=== PATIENT | female | born 1980 | race Caucasian/White ===

== ENCOUNTER 2018-03-31 17:10 | Inpatient (IN) ==
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
[2018-03-31 19:14] LABS: Baso % (Auto) 0.1 % (0.0-2.0); Eos % (Auto) 0.2 % (0.0-4.0); Hematocrit 38.8 % (35.0-46.0); Hemoglobin 13.7 gm/dL (11.6-15.3); Lymph % (Auto) 14.9 % (9.0-44.0); Mean Corpuscular HGB Conc 35.3 % (32.0-36.0); Mean Corpuscular Hemoglobin 33.5 pg (27.0-34.0); Mean Corpuscular Volume 94.9 fL (80.0-100.0); Mean Platelet Volume 7.6 fL (7.0-11.0); Mono % (Auto) 7.8 % (0.0-8.0); Neut # (Auto) 10.2 th/mm3 (1.8-7.7); Platelet Count 306 th/mm3 (150-450); Red Blood Count 4.09 mil/mm3 (4.00-5.30); Red Cell Distribution Width 13.2 % (11.6-17.2); White Blood Count 13.2 th/mm3 (4.0-11.0)
[2018-03-31 19:15] LABS: Amphetamine Screen,Urine Neg (Neg); Barbiturate Screen,Urine Neg (Neg); Cannabinoid Screen,Urine Neg (Neg); Cocaine Screen,Urine Neg (Neg)
[2018-03-31 19:19] LABS: Bacteria,Urine Rare /hpf; Bilirubin,Urine Negative (Negative); Clarity,Urine Clear (Clear); Color,Urine Colorless (Yellw/Straw); Glucose,Urine (UA) Negative (Negative); Leukocyte Esterase,Urine Negative (Negative); Nitrite,Urine Negative (Negative); Specific Gravity,Urine 1.001 (1.002-1.035)
[2018-03-31 19:25] LABS: Albumin 4.7 g/dL (3.4-5.0); Anion Gap 11 meq/L (5-15); Aspartate Aminotransferase 19 U/L (15-37); Blood Urea Nitrogen 7 mg/dL (7-18); Calcium 8.8 mg/dL (8.5-10.1); Carbon Dioxide 22.2 meq/L (21.0-32.0); Chloride 92 meq/L (98-107); Glomerular Filtration Rate Greater Than 89 mL/min (>89); Glucose,Random 112 mg/dL (74-106); Sodium 125 meq/L (136-145)
[2018-03-31 19:26] LABS: Alanine Aminotransferase 28 U/L (10-53)
[2018-03-31 19:27] LABS: Opiate Screen,Urine Neg (Neg)
[2018-03-31 19:36] LABS: Alkaline Phosphatase 71 U/L (45-117); Total Protein 7.6 g/dL (6.4-8.2)
[2018-03-31] MEDS ORDERED: Potassium Chloride 25 MEQ Effervescent Tablet PO ONE (20:15)
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
[2018-04-01] MEDS ORDERED: Aluminum/Magnesium/Simethacone Susp 30 ML UDC PO PRN (18:06)
[2018-04-01] MEDS: Senna/Docusate Sodium 8.6/50 MG Tablet PO SCH (21:40)
[2018-04-01] MEDS: Ibuprofen 600 MG Tablet PO SCH (21:40)
[2018-04-02] MEDS: Ibuprofen 600 MG Tablet PO SCH ×3 (06:26→21:26)
[2018-04-02] MEDS: Senna/Docusate Sodium 8.6/50 MG Tablet PO SCH ×2 (08:06→21:26)
[2018-04-02 10:15] LABS: Anion Gap 8 meq/L (5-15); Blood Urea Nitrogen 6 mg/dL (7-18); Calcium 8.8 mg/dL (8.5-10.1); Carbon Dioxide 27.4 meq/L (21.0-32.0); Chloride 102 meq/L (98-107); Chol/HDL Ratio 2.09 Ratio; Cholesterol 130 mg/dL (120-200); Glomerular Filtration Rate Greater Than 89 mL/min (>89); Glucose,Random 102 mg/dL (74-106); HDL Cholesterol 62.2 mg/dL (40.0-60.0); LDL Cholesterol,Calculated 60 mg/dL (0-99); Potassium 3.8 meq/L (3.5-5.1); Sodium 137 meq/L (136-145); Triglycerides 40 mg/dL (42-150)
[2018-04-02] MEDS ORDERED: Aluminum/Magnesium/Simethacone Susp 30 ML UDC PO PRN (12:15)
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
[2018-04-02 18:05] LABS: Hemoglobin A1c 4.8 % (4.3-6.0)
[2018-04-03] MEDS: Ibuprofen 600 MG Tablet PO SCH ×3 (08:44→21:05)
[2018-04-03] MEDS: Senna/Docusate Sodium 8.6/50 MG Tablet PO SCH ×2 (08:44→21:07)
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
[2018-04-04] MEDS: Ibuprofen 600 MG Tablet PO SCH ×3 (06:38→21:20)
[2018-04-04] MEDS ORDERED: QUEtiapine 100 MG Tablet PO SCH (09:48)
--- NOTE | 2018-04-04 09:51 | P.PNPSY ---
Subjective Remarks: Patient seen and torres with nurse Susana, chart reviewed, patient compliant medication. Patient continues markedly distracted and disorganized. Did not remember the statements she made to me 2 days ago about her delivering a baby that she identified as many. There is still thought blocking noted that she still responding to internal stimuli. We will increase Seroquel 250 mg twice daily Review of Systems All other systems reviewed negative except as stated in HPI Mental Status Examination Appearance: Disheveled (Somewhat improved) Consciousness: Alert Orientation: Person, Place (At least) Motor Activity: Normal gait Speech: Hesitant (Improving), Slow (Improved) Language: Adequate Fund of Knowledge: Adequate Attention and Concentration: Inadequate Memory: Unremarkable (Psychosis interferes) Mood: Anxious Affect: Irritable (Slightly), Blunt Thought Process & Associations: Tangential Thought Content: Bizarre thinking, Hallucinations Hallucination Type: Auditory (Appears internally stimulated) Delusion Type: Bizarre Suicidal Ideation: No Suicidal Plan: No Suicidal Intention: No Homicidal Ideation: No Homicidal Plan: No Homicidal Intention: No Insight: Poor Judgment: Poor Assessment and Plan - Assessment (1) Schizophrenia Code(s): F20.9 - Schizophrenia, unspecified Status: Acute - Plan Plan: Patient continues psychotic and delusional with auditory hallucinations. She medication adjustment above Justification for Continued Inpatient Stay: At this time patient would decompensate a place to a lower level of care Discharge Planning: To be determined Request Healthcare Surrogate/Guardian Advocate?: Yes (1) Schizophrenia Qualifiers: Schizophrenia type: paranoid schizophrenia Qualified Code(s): F20.0 - Paranoid schizophrenia
[2018-04-04] MEDS: Senna/Docusate Sodium 8.6/50 MG Tablet PO SCH ×2 (10:46→21:20)
[2018-04-04] MEDS: QUEtiapine 100 MG Tablet PO SCH ×2 (11:05→21:20)
[2018-04-05] MEDS: Ibuprofen 600 MG Tablet PO SCH ×3 (05:52→21:19)
[2018-04-05] MEDS: QUEtiapine 100 MG Tablet PO SCH ×2 (11:03→21:19)
[2018-04-05] MEDS: Senna/Docusate Sodium 8.6/50 MG Tablet PO SCH ×2 (11:03→21:18)
--- NOTE | 2018-04-05 15:22 | P.PNPSY ---
Subjective Remarks: Patient was seen and case discussed with nursing. Patient is disorganized with poor insight into her admission. She is vague and minimally engaged during the interview. She is compliant with her medications denies any auditory or visual hallucinations. Likely responding to internal stimuli Mental Status Examination Appearance: Disheveled (Somewhat improved) Consciousness: Alert Orientation: Person, Place (At least) Motor Activity: Normal gait Speech: Hesitant (Improving), Slow (Improved) Language: Adequate Fund of Knowledge: Adequate Attention and Concentration: Inadequate Memory: Unremarkable (Psychosis interferes) Mood: Anxious Affect: Irritable (Slightly), Blunt Thought Process & Associations: Tangential Thought Content: Bizarre thinking, Hallucinations Hallucination Type: Auditory (Appears internally stimulated) Delusion Type: Bizarre Suicidal Ideation: No Suicidal Plan: No Suicidal Intention: No Homicidal Ideation: No Homicidal Plan: No Homicidal Intention: No Insight: Poor Judgment: Poor Assessment and Plan - Assessment (1) Schizophrenia Code(s): F20.9 - Schizophrenia, unspecified Status: Acute - Plan Plan: Continue current treatment plan Justification for Continued Inpatient Stay: Patient would decompensate in a less restrictive setting Request Healthcare Surrogate/Guardian Advocate?: Yes (1) Schizophrenia Qualifiers: Schizophrenia type: paranoid schizophrenia Qualified Code(s): F20.0 - Paranoid schizophrenia
[2018-04-06] MEDS: Ibuprofen 600 MG Tablet PO SCH ×3 (05:49→22:00)
[2018-04-06] MEDS: QUEtiapine 100 MG Tablet PO SCH ×2 (08:31→20:22)
[2018-04-06] MEDS: Senna/Docusate Sodium 8.6/50 MG Tablet PO SCH ×2 (08:33→20:22)
--- NOTE | 2018-04-06 12:37 | P.PNPSY ---
Subjective Remarks: Patient was seen and case discussed with nursing. Patient is disheveled with toothpaste all over her face. She says she is putting it on her pimples. She is internally stimulated and continues with somatic delusions. Thought processes disorganized. Per nursing she has been intrusive with other patients taking their food. However, she denies auditory or visual hallucinations Mental Status Examination Appearance: Disheveled (Somewhat improved) Consciousness: Alert Orientation: Person, Place (At least) Motor Activity: Normal gait Speech: Hesitant (Improving), Slow (Improved) Language: Adequate Fund of Knowledge: Adequate Attention and Concentration: Inadequate Memory: Unremarkable (Psychosis interferes) Mood: Anxious Affect: Irritable (Slightly), Blunt Thought Process & Associations: Circumstantial Thought Content: Bizarre thinking, Hallucinations Hallucination Type: Auditory (Appears internally stimulated) Delusion Type: Bizarre Suicidal Ideation: No Suicidal Plan: No Suicidal Intention: No Homicidal Ideation: No Homicidal Plan: No Homicidal Intention: No Insight: Poor Judgment: Poor Assessment and Plan - Assessment (1) Schizophrenia Code(s): F20.9 - Schizophrenia, unspecified Status: Acute - Plan Plan: Continue current treatment plan Justification for Continued Inpatient Stay: Patient would decompensate in a less restrictive setting Request Healthcare Surrogate/Guardian Advocate?: Yes (1) Schizophrenia Qualifiers: Schizophrenia type: paranoid schizophrenia Qualified Code(s): F20.0 - Paranoid schizophrenia
[2018-04-07] MEDS: Ibuprofen 600 MG Tablet PO SCH ×3 (06:37→21:59)
[2018-04-07] MEDS: QUEtiapine 100 MG Tablet PO SCH ×2 (08:40→21:58)
[2018-04-07] MEDS: Senna/Docusate Sodium 8.6/50 MG Tablet PO SCH ×2 (08:41→21:59)
--- NOTE | 2018-04-07 14:24 | P.PNPSY ---
Subjective Remarks: Patient seen in day room with nurse Mitra. Patient continues disorganized scattered thought blocking. She is vague about any continued auditory hallucinations. It appears last night patient's his toothpaste and they have that all over her face and forehead she said it was to take care of "zits" she is compliant with her medication and of the counselor called patient's family to discuss possible placement issues Review of Systems All other systems reviewed negative except as stated in HPI Mental Status Examination Appearance: Disheveled (Somewhat improved) Consciousness: Alert Orientation: Person, Place (At least) Motor Activity: Normal gait Speech: Hesitant (Improving), Slow (Improved) Language: Adequate Fund of Knowledge: Adequate Attention and Concentration: Inadequate Memory: Unremarkable (Psychosis interferes) Mood: Anxious Affect: Irritable (Slightly), Blunt Thought Process & Associations: Circumstantial Thought Content: Bizarre thinking, Hallucinations Hallucination Type: Auditory (Appears internally stimulated) Delusion Type: Bizarre Suicidal Ideation: No Suicidal Plan: No Suicidal Intention: No Homicidal Ideation: No Homicidal Plan: No Homicidal Intention: No Insight: Poor Judgment: Poor Assessment and Plan - Assessment (1) Schizophrenia Code(s): F20.9 - Schizophrenia, unspecified Status: Acute - Plan Plan: Patient remains quite psychotic delusional and bizarre. We will attempt to reach patient's family to discuss further treatment discharge planning Justification for Continued Inpatient Stay: At this time patient would decompensate a place to a lower level of care Discharge Planning: To be determined possibly back home Request Healthcare Surrogate/Guardian Advocate?: Yes (1) Schizophrenia Qualifiers: Schizophrenia type: paranoid schizophrenia Qualified Code(s): F20.0 - Paranoid schizophrenia
[2018-04-08] MEDS: Ibuprofen 600 MG Tablet PO SCH ×2 (06:21→13:51)
[2018-04-08] MEDS: QUEtiapine 100 MG Tablet PO SCH (08:55)
[2018-04-08] MEDS: Senna/Docusate Sodium 8.6/50 MG Tablet PO SCH (08:56)
--- NOTE | 2018-04-08 14:15 | P.PNPSY ---
Subjective Remarks: Patient seen in her room with RN, chart reviewed, patient complaint medications she continues to show no insight into her disease, she denies any need for medication. She does not want to take medication. She does not think she has a mental illness. She just wants to be left alone. We will offer in [place] 3 mg orally and anticipation of possibly offering her in Parish sustain a long-acting Review of Systems All other systems reviewed negative except as stated in HPI Mental Status Examination Appearance: Disheveled (Somewhat improved) Consciousness: Alert Orientation: Person, Place (At least) Motor Activity: Normal gait Speech: Hesitant (Improving), Slow (Improved) Language: Adequate Fund of Knowledge: Adequate Attention and Concentration: Inadequate Memory: Unremarkable (Psychosis interferes) Mood: Anxious Affect: Irritable (Slightly), Blunt Thought Process & Associations: Circumstantial Thought Content: Bizarre thinking, Hallucinations Hallucination Type: Auditory (Appears internally stimulated) Delusion Type: Bizarre Suicidal Ideation: No Suicidal Plan: No Suicidal Intention: No Homicidal Ideation: No Homicidal Plan: No Homicidal Intention: No Insight: Poor Judgment: Poor Assessment and Plan - Assessment (1) Schizophrenia Code(s): F20.9 - Schizophrenia, unspecified Status: Acute - Plan Plan: Patient remains psychotic delusional with no insight into her disease and need for medication. She medication adjustment above offering in [place] orally in anticipation of possibly giving her the in Parish sustain a Justification for Continued Inpatient Stay: At this time patient would decompensate a place to a lower level of care Discharge Planning: To be determined Request Healthcare Surrogate/Guardian Advocate?: Yes (1) Schizophrenia Qualifiers: Schizophrenia type: paranoid schizophrenia Qualified Code(s): F20.0 - Paranoid schizophrenia
[2018-04-09] MEDS: Ibuprofen 600 MG Tablet PO SCH ×3 (01:09→23:44)
[2018-04-09] MEDS: Senna/Docusate Sodium 8.6/50 MG Tablet PO SCH ×3 (01:10→20:05)
[2018-04-09] MEDS: QUEtiapine 100 MG Tablet PO SCH ×3 (01:10→20:03)
--- NOTE | 2018-04-09 10:13 | P.PNPSY ---
Subjective Remarks: Patient seen and unit 2700 today. Patient seen with nurse. Chart reviewed. After the progress note dictated yesterday patient became quite out of control screaming and yelling being aggressive throwing herself on the ground she need an DTO of Zyprexa and Ativan. Patient was then transferred 2700 unit she slept fairly well through the night. Today patient seen on 2700 unit with nurse she continues to pace the halls saying she is not L she does not need medicine. All she needs to do is to go home with her father. I did attempt to offer patient in [place] orally yesterday she refused. Patient scheduled for Dials tomorrow. It is hoped her father will be there so he may become guardian advocate. May need to initiate more aggressive treatment with both rapid acting and the long-acting injectable Review of Systems All other systems reviewed negative except as stated in HPI Mental Status Examination Appearance: Disheveled (Somewhat improved) Consciousness: Alert Orientation: Person, Place (At least) Motor Activity: Normal gait Speech: Pressured, Hesitant (Improving), Slow (Improved), Other (Quite loud and disorganized) Language: Adequate Fund of Knowledge: Adequate Attention and Concentration: Inadequate Memory: Unremarkable (Psychosis interferes) Mood: Angry, Anxious, Irritable Affect: Other (Decreased range and intensity) Thought Process & Associations: Circumstantial, Disorganized Thought Content: Bizarre thinking, Hallucinations Hallucination Type: Auditory (Appears internally stimulated) Delusion Type: Bizarre Suicidal Ideation: No Suicidal Plan: No Suicidal Intention: No Homicidal Ideation: No Homicidal Plan: No Homicidal Intention: No Insight: Poor Judgment: Poor Assessment and Plan - Assessment (1) Schizophrenia Code(s): F20.9 - Schizophrenia, unspecified Status: Acute - Plan Plan: Patient remains quite psychotic and delusional with no insight. Patient scheduled for Dials tomorrow Justification for Continued Inpatient Stay: At this time patient would decompensate a place to the lower level of care Discharge Planning: To be determined Request Healthcare Surrogate/Guardian Advocate?: Yes (1) Schizophrenia Qualifiers: Schizophrenia type: paranoid schizophrenia Qualified Code(s): F20.0 - Paranoid schizophrenia
[2018-04-10] MEDS: Senna/Docusate Sodium 8.6/50 MG Tablet PO SCH ×2 (08:04→20:38)
[2018-04-10] MEDS: QUEtiapine 100 MG Tablet PO SCH ×3 (08:05→21:42)
--- NOTE | 2018-04-10 12:38 | P.PNPSY ---
Subjective Remarks: Patient seen in [address] was retained by Raymond Howell. Patient remained markedly disorganized confused demanding showing no insight into her disease. Only wishes to be discharged so she can go outside and smoke. Patient compliant medication Review of Systems All other systems reviewed negative except as stated in HPI Mental Status Examination Appearance: Disheveled (Somewhat improved) Consciousness: Alert Orientation: Person, Place (At least) Motor Activity: Normal gait Speech: Pressured, Hesitant (Improving), Slow (Improved), Other (Quite loud and disorganized) Language: Adequate Fund of Knowledge: Adequate Attention and Concentration: Inadequate Memory: Unremarkable (Psychosis interferes) Mood: Angry, Anxious, Irritable Affect: Other (Decreased range and intensity) Thought Process & Associations: Circumstantial, Disorganized Thought Content: Bizarre thinking, Hallucinations Hallucination Type: Auditory (Appears internally stimulated) Delusion Type: Bizarre Suicidal Ideation: No Suicidal Plan: No Suicidal Intention: No Homicidal Ideation: No Homicidal Plan: No Homicidal Intention: No Insight: Poor Judgment: Poor Assessment and Plan - Assessment (1) Schizophrenia Code(s): F20.9 - Schizophrenia, unspecified Status: Acute - Plan Plan: At this time patient remained psychotic delusional and labile. Compliant medication. He has been retained Justification for Continued Inpatient Stay: At this point patient would decompensate a place a lower level of care Discharge Planning: To be determined Request Healthcare Surrogate/Guardian Advocate?: Yes (1) Schizophrenia Qualifiers: Schizophrenia type: paranoid schizophrenia Qualified Code(s): F20.0 - Paranoid schizophrenia
[2018-04-10] MEDS: Ibuprofen 600 MG Tablet PO SCH (16:46)
[2018-04-11] MEDS: Ibuprofen 600 MG Tablet PO SCH ×5 (06:38→22:03)
[2018-04-11] MEDS: QUEtiapine 100 MG Tablet PO SCH ×2 (09:20→22:02)
--- NOTE | 2018-04-11 09:48 | P.PNPSY ---
Subjective Remarks: Patient seen and torres with floor staff, chart reviewed, patient trying to improve compliance medication. Her patient remains markedly disorganized paranoid confused and scattered irritable and vigilant We decided the oral INVEGA if she tolerates that over the weekend consider invega sustained on Saturday or Saturday Review of Systems All other systems reviewed negative except as stated in HPI Mental Status Examination Appearance: Disheveled (Somewhat improved) Consciousness: Alert Orientation: Person, Place (At least) Motor Activity: Normal gait Speech: Pressured, Hesitant (Improving), Slow (Improved) Language: Adequate Fund of Knowledge: Adequate Attention and Concentration: Inadequate Memory: Unremarkable (Psychosis interferes) Mood: Angry, Anxious, Irritable Affect: Other (Decreased range and intensity) Thought Process & Associations: Circumstantial, Disorganized Thought Content: Bizarre thinking, Hallucinations Hallucination Type: Auditory (Appears internally stimulated) Delusion Type: Bizarre Suicidal Ideation: No Suicidal Plan: No Suicidal Intention: No Homicidal Ideation: No Homicidal Plan: No Homicidal Intention: No Insight: Poor Judgment: Poor Assessment and Plan - Assessment (1) Schizophrenia Code(s): F20.9 - Schizophrenia, unspecified Status: Acute - Plan Plan: Patient remained psychotic delusional somewhat intrusive though overall compliant medication Justification for Continued Inpatient Stay: At this time patient would decompensate a place to a lower level of care Discharge Planning: To be determined Request Healthcare Surrogate/Guardian Advocate?: Yes (1) Schizophrenia Qualifiers: Schizophrenia type: paranoid schizophrenia Qualified Code(s): F20.0 - Paranoid schizophrenia
[2018-04-11] MEDS: Senna/Docusate Sodium 8.6/50 MG Tablet PO SCH ×2 (16:27→22:02)
[2018-04-12] MEDS: Ibuprofen 600 MG Tablet PO SCH ×3 (06:19→21:15)
[2018-04-12] MEDS: QUEtiapine 100 MG Tablet PO SCH ×2 (08:53→21:15)
[2018-04-12] MEDS: Senna/Docusate Sodium 8.6/50 MG Tablet PO SCH ×2 (08:58→21:15)
--- NOTE | 2018-04-12 17:07 | P.PNPSY ---
Subjective Remarks: Reviewed electronic medical records and discussed case with staff. Follow-up was conducted in the exam room. Patient states that she has not been sleeping well due to being "woke up way too early". She reports that she has had a good appetite and states that this hospital has good food. She remains disorganized at times. When asked what it brought her into this facility she went off on a tangent about the "girls being crunchy" when asked to elaborate she stated the girls are "people from high school" began to ramble not making a lot of sense. She was observed in the hallway appearing to this he will be experiencing internal stimulation. She randomly yells out and paces the halls Mental Status Examination Appearance: Disheveled (Somewhat improved) Consciousness: Alert Orientation: Person, Place (At least) Motor Activity: Normal gait Speech: Pressured, Hesitant (Improving), Slow (Improved) Language: Adequate Fund of Knowledge: Adequate Attention and Concentration: Inadequate Memory: Unremarkable (Psychosis interferes) Mood: Angry, Anxious, Irritable Affect: Other (Decreased range and intensity) Thought Process & Associations: Circumstantial, Disorganized Thought Content: Bizarre thinking, Hallucinations Hallucination Type: Auditory (Appears internally stimulated) Delusion Type: Bizarre Suicidal Ideation: No Suicidal Plan: No Suicidal Intention: No Homicidal Ideation: No Homicidal Plan: No Homicidal Intention: No Insight: Poor Judgment: Poor Assessment and Plan - Assessment (1) Schizophrenia Code(s): F20.9 - Schizophrenia, unspecified Status: Acute - Plan Plan: Patient will be reevaluated Saturday by the attending psychiatrist. Continue with current treatment plan. Justification for Continued Inpatient Stay: Moving this patient to a less restrictive environment would likely result in decompensation. Request Healthcare Surrogate/Guardian Advocate?: Yes (1) Schizophrenia Qualifiers: Schizophrenia type: paranoid schizophrenia Qualified Code(s): F20.0 - Paranoid schizophrenia
[2018-04-13] MEDS: QUEtiapine 100 MG Tablet PO SCH ×2 (09:20→21:41)
[2018-04-13] MEDS: Senna/Docusate Sodium 8.6/50 MG Tablet PO SCH ×2 (09:20→21:41)
[2018-04-13] MEDS: Ibuprofen 600 MG Tablet PO SCH ×2 (09:21→21:42)
--- NOTE | 2018-04-13 17:12 | P.PNPSY ---
Subjective Remarks: Reviewed electronic medical records and discussed case with staff. Follow-up was conducted in patient's room. She found lying on the bed awake, alert, and oriented. She reports that she feels "a little better". She has been compliant with her medications. However, she maintains that she still not sleeping very well. She requests to have her medications moved to the evening as she reports that they make her quite sleepy and makes it difficult to get out of bed. She does state that her appetite has been good however. I will leave her attending to decide if he would like to increase her dose at night and decrease her morning dose. Mental Status Examination Appearance: Disheveled (Somewhat improved) Consciousness: Alert Orientation: Person, Place (At least) Motor Activity: Normal gait Speech: Pressured, Hesitant (Improving), Slow (Improved) Language: Adequate Fund of Knowledge: Adequate Attention and Concentration: Inadequate Memory: Unremarkable (Psychosis interferes) Mood: Angry, Anxious, Irritable Affect: Other (Decreased range and intensity) Thought Process & Associations: Circumstantial, Disorganized Thought Content: Bizarre thinking, Hallucinations Hallucination Type: Auditory (Appears internally stimulated) Delusion Type: Bizarre Suicidal Ideation: No Suicidal Plan: No Suicidal Intention: No Homicidal Ideation: No Homicidal Plan: No Homicidal Intention: No Insight: Poor Judgment: Poor Assessment and Plan - Assessment (1) Schizophrenia Code(s): F20.9 - Schizophrenia, unspecified Status: Acute - Plan Plan: Patient will be reevaluated tomorrow by the attending psychiatrist. Continue with current treatment plan. Patient seems to be doing much better and is hopeful for discharge tomorrow. She is requesting to have her evening dose of Seroquel increased and her morning dose decreased. I will leave it to her attending to decide whether to make that change in medication. Justification for Continued Inpatient Stay: Moving this patient to a less restrictive environment would likely result in decompensation. Request Healthcare Surrogate/Guardian Advocate?: Yes (1) Schizophrenia Qualifiers: Schizophrenia type: paranoid schizophrenia Qualified Code(s): F20.0 - Paranoid schizophrenia
[2018-04-14] MEDS: Ibuprofen 600 MG Tablet PO SCH ×3 (06:47→21:02)
[2018-04-14] MEDS: QUEtiapine 100 MG Tablet PO SCH ×2 (08:30→20:29)
[2018-04-14] MEDS: Senna/Docusate Sodium 8.6/50 MG Tablet PO SCH ×2 (08:31→20:28)
--- NOTE | 2018-04-14 16:25 | P.PNPSY ---
Subjective Remarks: Reviewed electronic medical records and discussed case with staff. Follow-up was conducted in the hallway. Patient's nurse reports that she has had some behaviors today such as: Chasing people down the torres thinking that they had her headband, focused on water to drink, and standing in the torres with disorganized speech trying to communicate to the nurse. She reviews well for me stating that she slept well and her appetite is been good. When asked about the head be an incident she tries to explain it and quickly becomes disorganized in her speech. Mental Status Examination Appearance: Disheveled (Somewhat improved) Consciousness: Alert Orientation: Person, Place (At least) Motor Activity: Normal gait Speech: Pressured, Hesitant (Improving), Slow (Improved) Language: Adequate Fund of Knowledge: Adequate Attention and Concentration: Inadequate Memory: Unremarkable (Psychosis interferes) Mood: Angry, Anxious, Irritable Affect: Other (Decreased range and intensity) Thought Process & Associations: Circumstantial, Disorganized Thought Content: Bizarre thinking, Hallucinations Hallucination Type: Auditory (Appears internally stimulated) Delusion Type: Bizarre Suicidal Ideation: No Suicidal Plan: No Suicidal Intention: No Homicidal Ideation: No Homicidal Plan: No Homicidal Intention: No Insight: Poor Judgment: Poor Assessment and Plan - Assessment (1) Schizophrenia Code(s): F20.9 - Schizophrenia, unspecified Status: Acute - Plan Plan: Patient will be reevaluated tomorrow by the attending psychiatrist. Continue with current treatment plan. Justification for Continued Inpatient Stay: Moving this patient to a less restrictive environment would likely result in decompensation. Request Healthcare Surrogate/Guardian Advocate?: Yes (1) Schizophrenia Qualifiers: Schizophrenia type: paranoid schizophrenia Qualified Code(s): F20.0 - Paranoid schizophrenia
[2018-04-15] MEDS: QUEtiapine 100 MG Tablet PO SCH (08:23)
[2018-04-15] MEDS: Senna/Docusate Sodium 8.6/50 MG Tablet PO SCH ×2 (08:24→20:37)
[2018-04-15] MEDS: Ibuprofen 600 MG Tablet PO SCH ×2 (13:03→21:04)
--- NOTE | 2018-04-15 13:40 | P.PNPSY ---
Subjective Remarks: Patient seen and torres with floor staff, chart reviewed, patient compliant medications. Continues somewhat disorganized and intrusive paranoid and irritable. At this time I feel patient is not responded as well as I would like her to the Seroquel will condense the Seroquel to 400 mg at bedtime and add in [place] orally 6 mg in the a.m. in anticipation of in [place] sustain a Review of Systems All other systems reviewed negative except as stated in HPI Mental Status Examination Appearance: Disheveled (Somewhat improved) Consciousness: Alert Orientation: Person, Place (At least) Motor Activity: Normal gait Speech: Pressured, Hesitant (Improving), Slow (Improved) Language: Adequate Fund of Knowledge: Adequate Attention and Concentration: Inadequate Memory: Unremarkable (Psychosis interferes) Mood: Angry, Anxious, Irritable Affect: Other (Decreased range and intensity) Thought Process & Associations: Circumstantial, Disorganized Thought Content: Bizarre thinking, Hallucinations Hallucination Type: Auditory (Appears internally stimulated) Delusion Type: Bizarre Suicidal Ideation: No Suicidal Plan: No Suicidal Intention: No Homicidal Ideation: No Homicidal Plan: No Homicidal Intention: No Insight: Poor Judgment: Poor Assessment and Plan - Assessment (1) Schizophrenia Code(s): F20.9 - Schizophrenia, unspecified Status: Acute - Plan Plan: Patient remained psychotic delusional and intrusive. I feel she is not responding to medication as well as I would like. Thus please see medication adjustments above Justification for Continued Inpatient Stay: At this time patient would decompensate a place to a lower level of care Discharge Planning: To be determined possible return home or to [facility] Request Healthcare Surrogate/Guardian Advocate?: Yes (1) Schizophrenia Qualifiers: Schizophrenia type: paranoid schizophrenia Qualified Code(s): F20.0 - Paranoid schizophrenia
[2018-04-16] MEDS: Senna/Docusate Sodium 8.6/50 MG Tablet PO SCH ×2 (08:15→20:18)
[2018-04-16] MEDS: Ibuprofen 600 MG Tablet PO SCH ×3 (08:15→15:21)
--- NOTE | 2018-04-16 12:49 | P.PNPSY ---
Subjective Remarks: Patient seen in her room with nurse Namrata, chart reviewed, patient compliant medication. Patient tolerated initial dose of oral and [place] without difficulty. Patient continues quite loose disorganized paranoid and at times silly. She does acknowledge continued auditory hallucinations of Gabriel and other intermittent voices. For now continue treatment at this time and concerned about the responses patient is going to the medication as a possibility that she may need long-term stabilization thus I will initiate state referral packet Review of Systems All other systems reviewed negative except as stated in HPI Mental Status Examination Appearance: Disheveled (Somewhat improved) Consciousness: Alert Orientation: Person, Place (At least) Motor Activity: Normal gait Speech: Pressured, Hesitant (Improving), Slow (Improved) Language: Adequate Fund of Knowledge: Adequate Attention and Concentration: Inadequate Memory: Unremarkable (Psychosis interferes) Mood: Angry, Anxious, Irritable Affect: Other (Decreased range and intensity) Thought Process & Associations: Circumstantial, Disorganized Thought Content: Bizarre thinking, Hallucinations Hallucination Type: Auditory (Appears internally stimulated) Delusion Type: Bizarre Suicidal Ideation: No Suicidal Plan: No Suicidal Intention: No Homicidal Ideation: No Homicidal Plan: No Homicidal Intention: No Insight: Poor Judgment: Poor Assessment and Plan - Assessment (1) Schizophrenia Code(s): F20.9 - Schizophrenia, unspecified Status: Acute - Plan Plan: Patient remained psychotic paranoid vigilant and delusional we will start state referral packet Justification for Continued Inpatient Stay: At this time patient would decompensate a place to a lower level of care Discharge Planning: To be determined we will start state referral packet Request Healthcare Surrogate/Guardian Advocate?: Yes (1) Schizophrenia Qualifiers: Schizophrenia type: paranoid schizophrenia Qualified Code(s): F20.0 - Paranoid schizophrenia
[2018-04-17] MEDS: Ibuprofen 600 MG Tablet PO SCH ×4 (00:28→22:40)
[2018-04-17] MEDS: Senna/Docusate Sodium 8.6/50 MG Tablet PO SCH ×2 (08:23→21:05)
--- NOTE | 2018-04-17 08:52 | P.PNPSY ---
Subjective Remarks: Patient seen and torres with floor staff, patient calm cooperative is somewhat intrusive with me chart reviewed, patient compliant medications. Patient making very somatic complaints and demands stating that she wants dental floss, she wants a stronger nicotine lozenge, she also states she has not had a bowel movement in 2 weeks and she needs to have her "colon cleanse". We will have staff monitor her urinary and fecal output patient has been tolerating her oral in [place] if this continues we will consider in [place] sustain up tomorrow she also acknowledges continued voices in her head. Review of Systems All other systems reviewed negative except as stated in HPI Mental Status Examination Appearance: Disheveled (Somewhat improved) Consciousness: Alert Orientation: Person, Place (At least) Motor Activity: Normal gait Speech: Pressured, Hesitant (Improving), Slow (Improved) Language: Adequate Fund of Knowledge: Adequate Attention and Concentration: Inadequate Memory: Unremarkable (Psychosis interferes) Mood: Angry, Anxious, Irritable Affect: Other (Decreased range and intensity) Thought Process & Associations: Circumstantial, Disorganized Thought Content: Bizarre thinking, Hallucinations Hallucination Type: Auditory (Appears internally stimulated) Delusion Type: Bizarre Suicidal Ideation: No Suicidal Plan: No Suicidal Intention: No Homicidal Ideation: No Homicidal Plan: No Homicidal Intention: No Insight: Poor Judgment: Poor Assessment and Plan - Assessment (1) Schizophrenia Code(s): F20.9 - Schizophrenia, unspecified Status: Acute - Plan Plan: Patient continues psychotic and somewhat delusional, low compliant medications. She is tolerating her medication we will consider addition of the and [place] sustain at tomorrow Justification for Continued Inpatient Stay: At this time patient would decompensate a place to a lower level of care Discharge Planning: [facility] hospital referral packet has been started Request Healthcare Surrogate/Guardian Advocate?: Yes (1) Schizophrenia Qualifiers: Schizophrenia type: paranoid schizophrenia Qualified Code(s): F20.0 - Paranoid schizophrenia
[2018-04-18] MEDS: Ibuprofen 600 MG Tablet PO SCH ×2 (06:49→16:51)
[2018-04-18] MEDS: Senna/Docusate Sodium 8.6/50 MG Tablet PO SCH ×2 (08:31→20:59)
--- NOTE | 2018-04-18 12:09 | P.PNPSY ---
Subjective Remarks: Patient seen and torres with nurse Namrata, chart reviewed, patient compliant medications. Patient tolerating the oral and Parish without problems. We will offer her in Parish sustain a to 34 mg IM today and q. 28 days. Patient continues quite disorganized quite tangential and circumstantial well denying voices appears to be responding to internal stimuli patient had complained of constipation. Patient was medicated she states she had a good bowel movement yesterday Review of Systems All other systems reviewed negative except as stated in HPI Mental Status Examination Appearance: Disheveled (Somewhat improved) Consciousness: Alert Orientation: Person, Place (At least) Motor Activity: Normal gait Speech: Pressured, Hesitant (Improving), Slow (Improved) Language: Adequate Fund of Knowledge: Adequate Attention and Concentration: Inadequate Memory: Unremarkable (Psychosis interferes) Mood: Angry, Anxious, Irritable Affect: Other (Decreased range and intensity) Thought Process & Associations: Circumstantial, Disorganized Thought Content: Bizarre thinking, Hallucinations Hallucination Type: Auditory (Appears internally stimulated) Delusion Type: Bizarre Suicidal Ideation: No Suicidal Plan: No Suicidal Intention: No Homicidal Ideation: No Homicidal Plan: No Homicidal Intention: No Insight: Poor Judgment: Poor Assessment and Plan - Assessment (1) Schizophrenia Code(s): F20.9 - Schizophrenia, unspecified Status: Acute - Plan Plan: Patient continues disorganized with significant formal thought disorders quite tangential and circumstantial. She medication adjustment above Justification for Continued Inpatient Stay: At this time patient would decompensate a place to a lower level of care Discharge Planning: To be determined Request Healthcare Surrogate/Guardian Advocate?: Yes (1) Schizophrenia Qualifiers: Schizophrenia type: paranoid schizophrenia Qualified Code(s): F20.0 - Paranoid schizophrenia
[2018-04-18] MEDS ORDERED: Paliperidone Inj 234 MG/1.5 ML Syringe IM SCH (12:15)
[2018-04-19] MEDS: Ibuprofen 600 MG Tablet PO SCH ×3 (06:55→14:20)
[2018-04-19] MEDS: Senna/Docusate Sodium 8.6/50 MG Tablet PO SCH ×2 (08:49→20:39)
--- NOTE | 2018-04-19 15:40 | P.PNPSY ---
Subjective Remarks: Patient was seen and case discussed with nursing. Patient is pleasant and cooperative with exam. However, she becomes irritable and we spoke about her reasons for admission and her history. Insight is poor. She is compliant with her medications and behaving well on the unit. She denies any psychotic symptoms today Mental Status Examination Appearance: Disheveled (Somewhat improved) Consciousness: Vigilant Orientation: Person, Place (At least) Motor Activity: Normal gait Speech: Pressured, Hesitant (Improving), Slow (Improved) Language: Adequate Fund of Knowledge: Adequate Attention and Concentration: Inadequate Memory: Unremarkable (Psychosis interferes) Mood: Anxious, Irritable Affect: Other (Decreased range and intensity) Thought Process & Associations: Circumstantial, Disorganized Thought Content: Bizarre thinking, Hallucinations Hallucination Type: Auditory (Appears internally stimulated) Delusion Type: Bizarre Suicidal Ideation: No Suicidal Plan: No Suicidal Intention: No Homicidal Ideation: No Homicidal Plan: No Homicidal Intention: No Insight: Poor Judgment: Poor Assessment and Plan - Assessment (1) Schizophrenia Code(s): F20.9 - Schizophrenia, unspecified Status: Acute - Plan Plan: Continue current treatment plan Justification for Continued Inpatient Stay: Patient would decompensate in a less restrictive setting Request Healthcare Surrogate/Guardian Advocate?: Yes (1) Schizophrenia Qualifiers: Schizophrenia type: paranoid schizophrenia Qualified Code(s): F20.0 - Paranoid schizophrenia
[2018-04-19] MEDS: Bisacodyl 10 MG Supp RECTAL PRN (17:47)
[2018-04-20] MEDS: Senna/Docusate Sodium 8.6/50 MG Tablet PO SCH ×2 (09:26→20:33)
--- NOTE | 2018-04-20 14:37 | P.PNPSY ---
Subjective Remarks: Patient was seen and case discussed with nursing. Patient is behaving well on the unit. Per nursing, she did refuse her vital signs. Insight remains very poor concerning her admission and mental health. He is very focused on discharge. Mood has improved since yesterday Mental Status Examination Appearance: Disheveled (Somewhat improved) Consciousness: Vigilant Orientation: Person, Place (At least) Motor Activity: Normal gait Speech: Pressured, Hesitant (Improving), Slow (Improved) Language: Adequate Fund of Knowledge: Adequate Attention and Concentration: Inadequate Memory: Unremarkable (Psychosis interferes) Mood: Anxious, Irritable Affect: Other (Decreased range and intensity) Thought Process & Associations: Circumstantial, Disorganized Thought Content: Bizarre thinking, Hallucinations Hallucination Type: Auditory (Appears internally stimulated) Delusion Type: Bizarre Suicidal Ideation: No Suicidal Plan: No Suicidal Intention: No Homicidal Ideation: No Homicidal Plan: No Homicidal Intention: No Insight: Poor Judgment: Poor Assessment and Plan - Assessment (1) Schizophrenia Code(s): F20.9 - Schizophrenia, unspecified Status: Acute - Plan Plan: Continue current treatment plan Justification for Continued Inpatient Stay: Patient would decompensate in a less restrictive setting Request Healthcare Surrogate/Guardian Advocate?: Yes (1) Schizophrenia Qualifiers: Schizophrenia type: paranoid schizophrenia Qualified Code(s): F20.0 - Paranoid schizophrenia
[2018-04-20] MEDS: Ibuprofen 600 MG Tablet PO SCH (16:27)
[2018-04-21] MEDS: Senna/Docusate Sodium 8.6/50 MG Tablet PO SCH ×2 (09:07→20:31)
[2018-04-21] MEDS: Ibuprofen 600 MG Tablet PO SCH (15:38)
--- NOTE | 2018-04-21 20:50 | P.PNPSY ---
Subjective Remarks: Patient seen for follow, chart reviewed. Discussion nursing staff reported the patient continues to be disorganized at times. Patient was found lying hospital bed noted B, cooperative. Patient states that she feels like "ist", making some nonsensical statements during interview, reports her mood is "okay" continues report auditory hallucinations but was not able to elaborate effectively in describing the voices that she hears. Patient reports sleeping well, adequate appetite and no issues with bowel movement. Review of Systems All other systems reviewed negative except as stated in HPI Mental Status Examination Appearance: Disheveled (Somewhat improved) Consciousness: Vigilant Orientation: Person, Place (At least) Motor Activity: Normal gait Speech: Pressured, Hesitant (Improving), Slow (Improved) Language: Adequate Fund of Knowledge: Adequate Attention and Concentration: Inadequate Memory: Unremarkable (Psychosis interferes) Mood: Anxious, Irritable Affect: Other (Decreased range and intensity) Thought Process & Associations: Circumstantial, Disorganized Thought Content: Bizarre thinking, Hallucinations Hallucination Type: Auditory (Appears internally stimulated) Delusion Type: Bizarre Suicidal Ideation: No Suicidal Plan: No Suicidal Intention: No Homicidal Ideation: No Homicidal Plan: No Homicidal Intention: No Insight: Poor Judgment: Poor Assessment and Plan - Assessment (1) Schizophrenia Code(s): F20.9 - Schizophrenia, unspecified Status: Acute - Plan Plan: Patient continues with perceptual disturbances, disorganization, we will continue to require further stabilization. Continue current treatment. Continue to monitor mood and behavior. Discharge planning in progress. Justification for Continued Inpatient Stay: At risk for further decompensation if at lower level of care. Request Healthcare Surrogate/Guardian Advocate?: Yes (1) Schizophrenia Qualifiers: Schizophrenia type: paranoid schizophrenia Qualified Code(s): F20.0 - Paranoid schizophrenia
[2018-04-22] MEDS: Ibuprofen 600 MG Tablet PO SCH ×4 (00:46→23:39)
[2018-04-22] MEDS: Senna/Docusate Sodium 8.6/50 MG Tablet PO SCH ×2 (08:07→20:53)
--- NOTE | 2018-04-22 16:47 | P.PNPSY ---
Subjective Remarks: Patient seen in her room with RN, chart reviewed, patient compliant medications patient remains markedly disorganized tangential and circumstantial. She also states she feels kind of nervous inside. She denies suicidality she is vague about auditory hallucinations. We will add Cogentin 1 mg daily to regimen Review of Systems All other systems reviewed negative except as stated in HPI Mental Status Examination Appearance: Disheveled (Somewhat improved) Consciousness: Vigilant Orientation: Person, Place (At least) Motor Activity: Normal gait Speech: Pressured, Hesitant (Improving), Slow (Improved) Language: Adequate Fund of Knowledge: Adequate Attention and Concentration: Inadequate Memory: Unremarkable (Psychosis interferes) Mood: Anxious, Irritable Affect: Other (Decreased range and intensity) Thought Process & Associations: Circumstantial, Disorganized Thought Content: Bizarre thinking, Hallucinations Hallucination Type: Auditory (Appears internally stimulated) Delusion Type: Bizarre Suicidal Ideation: No Suicidal Plan: No Suicidal Intention: No Homicidal Ideation: No Homicidal Plan: No Homicidal Intention: No Insight: Poor Judgment: Poor Assessment and Plan - Assessment (1) Schizophrenia Code(s): F20.9 - Schizophrenia, unspecified Status: Acute - Plan Plan: Patient remains psychotic and delusional although perhaps showing some mild akathisia we will add Cogentin 1 mg daily to regimen Justification for Continued Inpatient Stay: At this point patient would decompensate a place to a lower level of care Discharge Planning: To be determined Request Healthcare Surrogate/Guardian Advocate?: Yes (1) Schizophrenia Qualifiers: Schizophrenia type: paranoid schizophrenia Qualified Code(s): F20.0 - Paranoid schizophrenia
[2018-04-22] MEDS: Bisacodyl 10 MG Supp RECTAL PRN (20:53)
[2018-04-23] MEDS: Senna/Docusate Sodium 8.6/50 MG Tablet PO SCH ×2 (09:06→20:58)
[2018-04-23] MEDS: Ibuprofen 600 MG Tablet PO SCH ×3 (09:06→21:26)
--- NOTE | 2018-04-23 11:25 | P.PNPSY ---
Subjective Remarks: Patient seen and torres with nurse Namrata, chart reviewed, patient compliant medication. Patient continues markedly disorganized tangential and circumstantial with increased intensity with her range and intensity of her affect. She now complains of itching all over body though she does not appear to be scratching at that her very reactive to this. The we will get hospitalist consulting us. Otherwise we will continue medications no change patient is scheduled for repeat hearing [facility] tomorrow for repeat hearing with the process of referral to [facility] Review of Systems All other systems reviewed negative except as stated in HPI Constitutional: Reports other (Itching) Mental Status Examination Appearance: Disheveled (Somewhat improved) Consciousness: Vigilant Orientation: Person, Place (At least) Motor Activity: Normal gait Speech: Pressured, Hesitant (Improving), Slow (Improved) Language: Adequate Fund of Knowledge: Adequate Attention and Concentration: Inadequate Memory: Unremarkable (Psychosis interferes) Mood: Anxious, Irritable Affect: Other (Decreased range and intensity) Thought Process & Associations: Circumstantial, Disorganized Thought Content: Bizarre thinking, Hallucinations Hallucination Type: Auditory (Appears internally stimulated) Delusion Type: Bizarre Suicidal Ideation: No Suicidal Plan: No Suicidal Intention: No Homicidal Ideation: No Homicidal Plan: No Homicidal Intention: No Insight: Poor Judgment: Poor Assessment and Plan - Assessment (1) Schizophrenia Code(s): F20.9 - Schizophrenia, unspecified Status: Acute - Plan Plan: Patient continues quite psychotic delusional and intrusive. Though is complaining of some diffuse itching all over her body, is also refer "septic with buildings and millions of bacteria in her. We will have hospitalist consult will us Justification for Continued Inpatient Stay: At this time patient would decompensate a place to a lower level of care patient scheduled for [facility] [facility] tomorrow Discharge Planning: To be determined Request Healthcare Surrogate/Guardian Advocate?: Yes (1) Schizophrenia Qualifiers: Schizophrenia type: paranoid schizophrenia Qualified Code(s): F20.0 - Paranoid schizophrenia
--- NOTE | 2018-04-23 14:27 | P.CON ---
History of Present Illness Service: [facility] Consult date: 04/23/18 Requesting Physician: Willy To Reason for Consult: Itching Primary Care Provider: UNKNOWN Chief Complaint: Itching History of Present Illness: Patient is a 37 year old female with no known medical history, and with paranoid schizophrenia who initially came into the hospital under Peña act for decompensating manic, confused, verbally and physically aggressive. She is now admitted to inpatient psychiatry unit for further evaluation. Hospitalist consulted today for complaints of itching throughout her body. Patient seen and examined today. The nurses at the bedside (Francisco and Minnie). Patient is hyperverbal. States that she has itch throughout her body and that she is using a barrier cream, fully naming the barrier cream and it was " working fine, very absorbent." Patient has multiple complaints including dental caries on the left molar. She also states that "I have warts in my vagina and I want somebody to look at it. I feel that I have a tampon inside me that has been there for 2 years that is how I feel about it." Patient has been rambling multiple complaints appears to be somatic. Otherwise, denies SOB / dyspnea. Denies chest pain, palpitations, headaches, dizziness. Denies fevers , chills, n/v/d. Denies dysuria. Review of Systems All other systems reviewed negative except as stated in HPI PMFSH - History History Provided By: Patient - Medical / Surgical Hx Neg / Unobtainable Medical Problems Denied: Yes Surgical History: No Previous Surgery - Medical History Medical History: Medical History (Last Updated 03/31/18 @ 18:01 by Chano Maki RN) Paranoid schizophrenia - Family History Family History: Family History (Last Updated 04/23/18 @ 17:14 by YASH Cheek) Other Healthy adult - Tobacco History Tobacco Use In Past 30 Days: Yes Smoking Status: Current every day smoker Tobacco Type: Cigarettes - Alcohol History How Often Do You Have a Drink Containing Alcohol: 2 to 4 times a month - Substance Use History Substance History: Unable to Obtain - Travel History Recent Travel in the [place] Within the Last 8 Weeks: No Recent Travel Out of the Country Within the Last 8 Weeks: No - Immunization History Tetanus Immunization: Unsure Hx Influenza Vaccine This Season: No Medications and Allergies Active Medications: Active Medications Al Hydrox/Mg Hydrox/Simethicone (Mag-Al Plus Susp Liq) 30 ml PO Q6H PRN PRN Reason: DYSPEPSIA Al Hydroxide/Mg Hydroxide (Milk Of Magnesia Liq) 30 ml PO Q12H PRN PRN Reason: Mild Constipation Last Admin: 04/18/18 11:34 Dose: 30 ml Benztropine Mesylate (Cogentin) 1 mg PO DAILY [facility] Last Admin: 04/23/18 09:05 Dose: 1 mg Bisacodyl (Dulcolax Supp) 10 mg RECTAL DAILY PRN PRN Reason: SEVERE CONSITIPATION Last Admin: 04/22/18 20:53 Dose: 10 mg Diphenhydramine HCl (Benadryl) 50 mg PO HS PRN PRN Reason: INSOMNIA Last Admin: 04/22/18 20:53 Dose: 50 mg Diphenhydramine HCl (Benadryl) 25 mg PO Q6H PRN PRN Reason: ITCHING AND/OR RASH Ibuprofen (Motrin) 600 mg PO Q8HR [facility] Last Admin: 04/23/18 14:19 Dose: Not Given Lactulose (Lactulose Liq) 30 ml PO DAILY PRN PRN Reason: SEVERE CONSITIPATION Miscellaneous (Pill Splitter) 1 each OTHER [facility] Paliperidone Palmitate (Invega Er) 6 mg PO DAILY [facility] Last Admin: 04/23/18 09:06 Dose: 6 mg Paliperidone Palmitate (Invega Sustenna Inj) 234 mg IM Q28D [facility] Last Admin: 04/18/18 16:54 Dose: 234 mg Quetiapine Fumarate (Seroquel) 400 mg PO HS [facility] Last Admin: 04/22/18 20:54 Dose: 400 mg Senna/Docusate Sodium (Fatoumata-Colace) 1 tab PO BID [facility] Last Admin: 04/23/18 09:06 Dose: 1 tab Sennosides (Senokot) 17.2 mg PO Q12H PRN PRN Reason: Moderate Constipation Allergies Allergy/AdvReac Type Severity Reaction Status Date / Time No Known Allergies Allergy Uncoded 06/30/15 10:05 Home Medications Medication Instructions Recorded Confirmed Type Abilify 03/31/18 History lorazepam [Ativan] 2 mg PO TID 03/31/18 03/31/18 History quetiapine [Seroquel] 400 mg PO BID 03/31/18 03/31/18 History Physical Exam Vital signs: Vital Signs 04/22/18 18:09 04/23/18 05:53 Temperature 97.3 F L 97.8 F Pulse Rate 79 88 Respiratory Rate 17 17 Blood Pressure 120/70 89/54 L Pulse Oximetry 99 97 Intake & Output 04/22/18 04/23/18 04/23/18 18:59 06:59 18:59 Other: Date of Last Bowel Movement 04/18/18 Narrative: GENERAL: This is a well-nourished, well-developed patient, in no apparent distress. SKIN: Warm and dry. No rash. HEENT: Normocephalic. Pupils equal round and reactive. Nose without bleeding. Airway patent. NECK: Trachea midline. CARDIOVASCULAR: Regular rate and rhythm without murmurs, gallops, or rubs. RESPIRATORY: Clear to auscultation. Breath sounds equal bilaterally. No wheezes , rales, or rhonchi. GASTROINTESTINAL: Abdomen soft, non-tender, nondistended. Bowel Sounds normoactive x4. MUSCULOSKELETAL: Extremities without clubbing, cyanosis, or edema. /REAL ESTATE ACCOUNT EXECUTIVE: Menstrual period noted. Mild external hemorrhoid. Labia has been smooth, no other abnormalities noted. Exam is limited NEUROLOGICAL: Awake and alert. Oriented to place, person. No focal neuro deficit. Moves all extremities. Fast speech. Assessment and Plan - Plan Patient is a 37 year old female with no known medical history, and with paranoid schizophrenia who initially came into the hospital under Peña act for decompensating manic, confused, verbally and physically aggressive. She is now admitted to inpatient psychiatry unit for further evaluation. Hospitalist consulted today for complaints of itching throughout her body. Schizophrenia, somatic disorder -Managed by psychiatry team Itching, uticaria -No rash noted throughout the body. This could be psychologically induced -Benadryl 25 mg p.o. every 6 hours for now. -Continue with barrier cream Mild hemorrhoid -May use hemorrhoid cream REAL ESTATE ACCOUNT EXECUTIVE Complaints, "warts" -External exam done no warts noted. Discussed with patient extensively she does not have vaginal warts. She also does not have any noticeable tampon in her vagina -Patient appears to have fixation about her vagina and rectum. The nurse reports she wants her finger there to inspect it. She was also given a suppository yesterday because she states she is constipated. She was told not to expel the suppository and she held her finger in her rectum the entire time. -No further exam for now. Discuss with patient that she will be referred to REAL ESTATE ACCOUNT EXECUTIVE in the outpatient setting Dental carries -Will refer to dentist in the outpatient setting DVT prop ambulatory Stable from Hospitalist standpoint. We will sign off. Reconsult as needed. Code Status: Full code Discussed Condition With: Patient, nurse Discharge Planning: DC disposition by primary team
[2018-04-24] MEDS: Senna/Docusate Sodium 8.6/50 MG Tablet PO SCH ×2 (09:04→21:33)
--- NOTE | 2018-04-24 09:16 | P.PNPSY ---
Subjective Remarks: Patient seen in [facility], patient retained by [facility] which now allows us to go forward with the state referral packet. Patient continues markedly disorganized focusing on her various somatic issues and her need for fruits and vegetables toothpaste dental flossing also focused on her bowel movements. Patient continues to deny mental illness and need for medication. We will increase oral and Parish 9 mg. Continue other medications no change Review of Systems All other systems reviewed negative except as stated in HPI Mental Status Examination Appearance: Disheveled (Somewhat improved) Consciousness: Vigilant Orientation: Person, Place (At least) Motor Activity: Normal gait Speech: Pressured, Hesitant (Improving), Slow (Improved) Language: Adequate Fund of Knowledge: Adequate Attention and Concentration: Inadequate Memory: Unremarkable (Psychosis interferes) Mood: Anxious, Irritable Affect: Other (Decreased range and intensity) Thought Process & Associations: Circumstantial, Disorganized Thought Content: Bizarre thinking, Hallucinations Hallucination Type: Auditory (Appears internally stimulated) Delusion Type: Bizarre Suicidal Ideation: No Suicidal Plan: No Suicidal Intention: No Homicidal Ideation: No Homicidal Plan: No Homicidal Intention: No Insight: Poor Judgment: Poor Assessment and Plan - Assessment (1) Schizophrenia Code(s): F20.9 - Schizophrenia, unspecified Status: Acute - Plan Plan: Patient retained by [facility] we will now continue the state referral process, see medication adjustment above father to be guardian advocate Justification for Continued Inpatient Stay: At this time patient would decompensate a place to the lower level of care Discharge Planning: State referral packet is being sent Request Healthcare Surrogate/Guardian Advocate?: Yes (1) Schizophrenia Qualifiers: Schizophrenia type: paranoid schizophrenia Qualified Code(s): F20.0 - Paranoid schizophrenia
[2018-04-24] MEDS: Ibuprofen 600 MG Tablet PO SCH ×3 (10:23→21:41)
[2018-04-25] MEDS: Senna/Docusate Sodium 8.6/50 MG Tablet PO SCH ×2 (08:49→21:40)
[2018-04-25] MEDS: Ibuprofen 600 MG Tablet PO SCH ×3 (12:47→22:04)
--- NOTE | 2018-04-25 14:11 | P.PNPSY ---
Subjective Remarks: Patient seen in day room with floor staff, chart reviewed, patient complaint medications, however patient continues quite psychotic now complaining of "toxins" all throughout her body coming out of her pores. Though she needs to do is go home and get a job and she did be happy. Patient continues markedly disorganized tangential and circumstantial. With no insight into her disease. Review of Systems All other systems reviewed negative except as stated in HPI Mental Status Examination Appearance: Disheveled (Somewhat improved) Consciousness: Vigilant Orientation: Person, Place (At least) Motor Activity: Normal gait Speech: Pressured, Hesitant (Improving), Slow (Improved) Language: Adequate Fund of Knowledge: Adequate Attention and Concentration: Inadequate Memory: Unremarkable (Psychosis interferes) Mood: Anxious, Irritable Affect: Other (Decreased range and intensity) Thought Process & Associations: Circumstantial, Disorganized Thought Content: Bizarre thinking, Hallucinations Hallucination Type: Auditory (Appears internally stimulated) Delusion Type: Bizarre Suicidal Ideation: No Suicidal Plan: No Suicidal Intention: No Homicidal Ideation: No Homicidal Plan: No Homicidal Intention: No Insight: Poor Judgment: Poor Assessment and Plan - Assessment (1) Schizophrenia Code(s): F20.9 - Schizophrenia, unspecified Status: Acute - Plan Plan: Patient remains quite psychotic delusional paranoid for now continue treatment Justification for Continued Inpatient Stay: At this time patient would decompensate a place to a lower level of care Discharge Planning: Refer to state hospital Request Healthcare Surrogate/Guardian Advocate?: Yes (1) Schizophrenia Qualifiers: Schizophrenia type: paranoid schizophrenia Qualified Code(s): F20.0 - Paranoid schizophrenia
[2018-04-26] MEDS: Ibuprofen 600 MG Tablet PO SCH ×3 (06:50→21:06)
[2018-04-26] MEDS: Senna/Docusate Sodium 8.6/50 MG Tablet PO SCH ×2 (08:19→21:06)
--- NOTE | 2018-04-26 12:19 | P.PNPSY ---
Subjective Remarks: Pt seen and discusseed with staff. She remains fixated on somatic delusions and remains disorganized in thought process with delusions of thought insertion. She states that she does appreciate [place] for keeping the "cell souls" away from her. Mental Status Examination Appearance: Disheveled (Somewhat improved) Consciousness: Vigilant Orientation: Person, Place (At least) Motor Activity: Normal gait Speech: Pressured, Hesitant (Improving), Slow (Improved) Language: Adequate Fund of Knowledge: Adequate Attention and Concentration: Inadequate Memory: Unremarkable (Psychosis interferes) Mood: Anxious, Irritable Affect: Other (Decreased range and intensity) Thought Process & Associations: Circumstantial, Disorganized Thought Content: Bizarre thinking, Hallucinations Hallucination Type: Auditory (Appears internally stimulated) Delusion Type: Bizarre Suicidal Ideation: No Suicidal Plan: No Suicidal Intention: No Homicidal Ideation: No Homicidal Plan: No Homicidal Intention: No Insight: Poor Judgment: Poor Assessment and Plan - Assessment (1) Schizophrenia Code(s): F20.9 - Schizophrenia, unspecified Status: Acute - Plan Plan: Continue current tx plan Justification for Continued Inpatient Stay: impairments in reality testing Request Healthcare Surrogate/Guardian Advocate?: Yes (1) Schizophrenia Qualifiers: Schizophrenia type: paranoid schizophrenia Qualified Code(s): F20.0 - Paranoid schizophrenia
[2018-04-27] MEDS: Ibuprofen 600 MG Tablet PO SCH ×4 (06:37→21:30)
[2018-04-27] MEDS: Senna/Docusate Sodium 8.6/50 MG Tablet PO SCH ×2 (08:10→21:29)
[2018-04-27] MEDS: Bisacodyl 10 MG Supp RECTAL PRN (11:22)
--- NOTE | 2018-04-27 11:29 | P.PNPSY ---
Subjective Remarks: Pt seen and discussed with staff. She has been compliant with medications. She remains paranoid and bizarre, but has not been agitated or combative today. No SI/HI Mental Status Examination Appearance: Disheveled (Somewhat improved) Consciousness: Vigilant Orientation: Person, Place (At least) Motor Activity: Normal gait Speech: Pressured, Hesitant (Improving), Slow (Improved) Language: Adequate Fund of Knowledge: Adequate Attention and Concentration: Inadequate Memory: Unremarkable (Psychosis interferes) Mood: Anxious, Irritable Affect: Other (Decreased range and intensity) Thought Process & Associations: Circumstantial, Disorganized Thought Content: Bizarre thinking, Hallucinations Hallucination Type: Auditory (Appears internally stimulated) Delusion Type: Bizarre Suicidal Ideation: No Suicidal Plan: No Suicidal Intention: No Homicidal Ideation: No Homicidal Plan: No Homicidal Intention: No Insight: Poor Judgment: Poor Assessment and Plan - Assessment (1) Schizophrenia Code(s): F20.9 - Schizophrenia, unspecified Status: Acute - Plan Plan: Continue current tx plan Justification for Continued Inpatient Stay: impairments in reality testing Request Healthcare Surrogate/Guardian Advocate?: Yes (1) Schizophrenia Qualifiers: Schizophrenia type: paranoid schizophrenia Qualified Code(s): F20.0 - Paranoid schizophrenia
[2018-04-28] MEDS: Senna/Docusate Sodium 8.6/50 MG Tablet PO SCH ×2 (09:02→20:49)
[2018-04-28] MEDS: Ibuprofen 600 MG Tablet PO SCH ×2 (14:00→22:22)
[2018-04-28] MEDS ORDERED: Paliperidone Inj 156 MG/ML Syringe IM ONE ×2 (14:29→17:00)
--- NOTE | 2018-04-28 14:32 | P.PNPSY ---
Subjective Remarks: Patient seen and torres with nurse Lorenza, patient chart reviewed patient compliant medication. Patient continues markedly disorganized irritable and labile with focusing on her skin on her reaction and the need for various appointments. Patient is due for her booster of her [place] [facility] a we will offer her 156 mg IM today. Patient states she just talked her father is willing to have her come home today with him Review of Systems All other systems reviewed negative except as stated in HPI Mental Status Examination Appearance: Disheveled (Somewhat improved) Consciousness: Vigilant Orientation: Person, Place (At least) Motor Activity: Normal gait Speech: Pressured, Hesitant (Improving), Slow (Improved) Language: Adequate Fund of Knowledge: Adequate Attention and Concentration: Inadequate Memory: Unremarkable (Psychosis interferes) Mood: Anxious, Irritable Affect: Other (Decreased range and intensity) Thought Process & Associations: Circumstantial, Disorganized Thought Content: Bizarre thinking, Hallucinations Hallucination Type: Auditory (Appears internally stimulated) Delusion Type: Bizarre Suicidal Ideation: No Suicidal Plan: No Suicidal Intention: No Homicidal Ideation: No Homicidal Plan: No Homicidal Intention: No Insight: Poor Judgment: Poor Assessment and Plan - Assessment (1) Schizophrenia Code(s): F20.9 - Schizophrenia, unspecified Status: Acute - Plan Plan: Patient continues psychotic delusional, please see medication adjustment above Justification for Continued Inpatient Stay: At this time patient would decompensate a place to a lower level of care Discharge Planning: To be determined Request Healthcare Surrogate/Guardian Advocate?: Yes (1) Schizophrenia Qualifiers: Schizophrenia type: paranoid schizophrenia Qualified Code(s): F20.0 - Paranoid schizophrenia
[2018-04-29] MEDS: Senna/Docusate Sodium 8.6/50 MG Tablet PO SCH ×2 (09:58→20:09)
[2018-04-29] MEDS: Ibuprofen 600 MG Tablet PO SCH ×2 (10:29→15:36)
--- NOTE | 2018-04-29 13:22 | P.PNPSY ---
Subjective Remarks: Patient seen and unit with nurse Cabezas, chart reviewed, patient compliant medication. Patient remains quite delusional paranoid and vigilant though no significant behavioral problems, she is compliant medication. Patient did receive her [place] [facility] out with 6 mg booster injection. She appears to be tolerating that well. Her 28 days dose will be coming up on about May 28 Review of Systems All other systems reviewed negative except as stated in HPI Mental Status Examination Appearance: Disheveled (Somewhat improved) Consciousness: Vigilant Orientation: Person, Place (At least) Motor Activity: Normal gait Speech: Pressured, Hesitant (Improving), Slow (Improved) Language: Adequate Fund of Knowledge: Adequate Attention and Concentration: Inadequate Memory: Unremarkable (Psychosis interferes) Mood: Anxious, Irritable Affect: Other (Decreased range and intensity) Thought Process & Associations: Circumstantial, Disorganized Thought Content: Bizarre thinking, Hallucinations Hallucination Type: Auditory (Appears internally stimulated) Delusion Type: Bizarre Suicidal Ideation: No Suicidal Plan: No Suicidal Intention: No Homicidal Ideation: No Homicidal Plan: No Homicidal Intention: No Insight: Poor Judgment: Poor Assessment and Plan - Assessment (1) Schizophrenia Code(s): F20.9 - Schizophrenia, unspecified Status: Acute - Plan Plan: Patient remained psychotic and delusional compliant medication. She medication adjustments made Justification for Continued Inpatient Stay: At this time patient would decompensate a place to a lower level of care Discharge Planning: To be determined Request Healthcare Surrogate/Guardian Advocate?: Yes (1) Schizophrenia Qualifiers: Schizophrenia type: paranoid schizophrenia Qualified Code(s): F20.0 - Paranoid schizophrenia
[2018-04-30] MEDS: Ibuprofen 600 MG Tablet PO SCH ×3 (02:00→23:14)
[2018-04-30] MEDS: Senna/Docusate Sodium 8.6/50 MG Tablet PO SCH ×2 (08:27→20:07)
--- NOTE | 2018-04-30 13:55 | P.PNPSY ---
Subjective Remarks: Patient seen in day room with nurse Mel, patient continues diffusely confused and disorganized.. Is vague about voices but appears to be responding to internal stimuli. For now continue treatment Review of Systems All other systems reviewed negative except as stated in HPI Mental Status Examination Appearance: Disheveled (Somewhat improved) Consciousness: Vigilant Orientation: Person, Place (At least) Motor Activity: Normal gait Speech: Pressured, Hesitant (Improving), Slow (Improved) Language: Adequate Fund of Knowledge: Adequate Attention and Concentration: Inadequate Memory: Unremarkable (Psychosis interferes) Mood: Anxious, Irritable Affect: Other (Decreased range and intensity) Thought Process & Associations: Circumstantial, Disorganized Thought Content: Bizarre thinking, Hallucinations Hallucination Type: Auditory (Appears internally stimulated) Delusion Type: Bizarre Suicidal Ideation: No Suicidal Plan: No Suicidal Intention: No Homicidal Ideation: No Homicidal Plan: No Homicidal Intention: No Insight: Poor Judgment: Poor Assessment and Plan - Assessment (1) Schizophrenia Code(s): F20.9 - Schizophrenia, unspecified Status: Acute - Plan Plan: Patient continues delusional confused and disorganized. She is compliant medication. Justification for Continued Inpatient Stay: At this time patient would decompensate if placed in a lower level of care Discharge Planning: To be determined Request Healthcare Surrogate/Guardian Advocate?: Yes (1) Schizophrenia Qualifiers: Schizophrenia type: paranoid schizophrenia Qualified Code(s): F20.0 - Paranoid schizophrenia
[2018-05-01] MEDS: Ibuprofen 600 MG Tablet PO SCH ×2 (08:49→18:24)
[2018-05-01] MEDS: Senna/Docusate Sodium 8.6/50 MG Tablet PO SCH ×2 (08:50→20:04)
--- NOTE | 2018-05-01 11:42 | P.PNPSY ---
Subjective Remarks: Patient seen and torres with nurse Mel, chart reviewed, patient compliant medication. Patient continues disorganized confused somewhat irritable with me today ask me my first name and she said "Willy To" shook her head and walked away from me. Staff states that patient continues to focus much on her skin and various lotions. We will order her use room to see if this will help calm her Review of Systems All other systems reviewed negative except as stated in HPI Mental Status Examination Appearance: Disheveled (Somewhat improved) Consciousness: Vigilant Orientation: Person, Place (At least) Motor Activity: Normal gait Speech: Pressured, Hesitant (Improving), Slow (Improved) Language: Adequate Fund of Knowledge: Adequate Attention and Concentration: Inadequate Memory: Unremarkable (Psychosis interferes) Mood: Anxious, Irritable Affect: Other (Decreased range and intensity) Thought Process & Associations: Circumstantial, Disorganized Thought Content: Bizarre thinking, Hallucinations Hallucination Type: Auditory (Appears internally stimulated) Delusion Type: Bizarre Suicidal Ideation: No Suicidal Plan: No Suicidal Intention: No Homicidal Ideation: No Homicidal Plan: No Homicidal Intention: No Insight: Poor Judgment: Poor Assessment and Plan - Assessment (1) Schizophrenia Code(s): F20.9 - Schizophrenia, unspecified Status: Acute - Plan Plan: Patient continues psychotic though compliant with medications. Some perseveration still on her skin will order Eucerin cream Justification for Continued Inpatient Stay: At this time patient would decompensate a place to a lower level of care Discharge Planning: To be determined Request Healthcare Surrogate/Guardian Advocate?: Yes (1) Schizophrenia Qualifiers: Schizophrenia type: paranoid schizophrenia Qualified Code(s): F20.0 - Paranoid schizophrenia
[2018-05-02] MEDS: Ibuprofen 600 MG Tablet PO SCH ×3 (05:22→21:04)
[2018-05-02] MEDS: Senna/Docusate Sodium 8.6/50 MG Tablet PO SCH ×2 (08:53→20:52)
--- NOTE | 2018-05-02 14:01 | P.PNPSY ---
Subjective Remarks: Patient seen in day room with floor staff, patient sitting quietly at the table chart reviewed, patient compliant medication. Patient continues disorganized somewhat confused continues no insight into her issues. Today has a white face crying liberally applied to her face looking somewhat like white pancake makeup the client would use. Dental floss all the time for her teeth and she needs rectal suppository every day for her bowel movements. This somatic focus is similar to what she has been doing chronically. At this time will continue treatment no change continue to await word from [facility] referral Review of Systems All other systems reviewed negative except as stated in HPI Mental Status Examination Appearance: Disheveled (Somewhat improved) Consciousness: Vigilant Orientation: Person, Place (At least) Motor Activity: Normal gait Speech: Pressured, Hesitant (Improving), Slow (Improved) Language: Adequate Fund of Knowledge: Adequate Attention and Concentration: Inadequate Memory: Unremarkable (Psychosis interferes) Mood: Anxious, Irritable Affect: Other (Decreased range and intensity) Thought Process & Associations: Circumstantial, Disorganized Thought Content: Bizarre thinking, Hallucinations Hallucination Type: Auditory (Appears internally stimulated) Delusion Type: Bizarre Suicidal Ideation: No Suicidal Plan: No Suicidal Intention: No Homicidal Ideation: No Homicidal Plan: No Homicidal Intention: No Insight: Poor Judgment: Poor Assessment and Plan - Assessment (1) Schizophrenia Code(s): F20.9 - Schizophrenia, unspecified Status: Acute - Plan Plan: Patient remains quite psychotic and delusional, compliant medications continue to await word from [facility] Justification for Continued Inpatient Stay: At this time patient would decompensate a place to a lower level of care Discharge Planning: Continue to await word from [facility] referral Request Healthcare Surrogate/Guardian Advocate?: Yes (1) Schizophrenia Qualifiers: Schizophrenia type: paranoid schizophrenia Qualified Code(s): F20.0 - Paranoid schizophrenia
[2018-05-03] MEDS: Ibuprofen 600 MG Tablet PO SCH ×4 (05:52→21:03)
[2018-05-03] MEDS: Senna/Docusate Sodium 8.6/50 MG Tablet PO SCH ×2 (09:17→20:53)
--- NOTE | 2018-05-03 16:11 | P.PNPSY ---
Subjective Remarks: Patient was seen and case discussed with nursing. Patient is behaving well on the unit. However she started yelling when I said I wanted lab work given her polydipsia. She is irritable that she remains in the hospital was poor insight concerning her admission and prognosis. Mental Status Examination Appearance: Disheveled (Somewhat improved) Consciousness: Vigilant Orientation: Person, Place (At least) Motor Activity: Normal gait Speech: Pressured, Hesitant (Improving), Slow (Improved) Language: Adequate Fund of Knowledge: Adequate Attention and Concentration: Inadequate Memory: Unremarkable (Psychosis interferes) Mood: Anxious, Irritable Affect: Other (Decreased range and intensity) Thought Process & Associations: Circumstantial, Disorganized Thought Content: Bizarre thinking, Hallucinations Hallucination Type: Auditory (Appears internally stimulated) Delusion Type: Bizarre Suicidal Ideation: No Suicidal Plan: No Suicidal Intention: No Homicidal Ideation: No Homicidal Plan: No Homicidal Intention: No Insight: Poor Judgment: Poor Assessment and Plan - Assessment (1) Schizophrenia Code(s): F20.9 - Schizophrenia, unspecified Status: Acute - Plan Plan: Lab work tomorrow morning Justification for Continued Inpatient Stay: Patient would decompensate in a less restrictive setting Request Healthcare Surrogate/Guardian Advocate?: Yes (1) Schizophrenia Qualifiers: Schizophrenia type: paranoid schizophrenia Qualified Code(s): F20.0 - Paranoid schizophrenia
[2018-05-04] MEDS: Ibuprofen 600 MG Tablet PO SCH ×3 (06:30→21:45)
[2018-05-04] MEDS: Senna/Docusate Sodium 8.6/50 MG Tablet PO SCH ×2 (08:36→21:00)
[2018-05-04 09:27] LABS: Baso % (Auto) 0.4 % (0.0-2.0); Eos # (Auto) 0.1 th/mm3 (0.0-0.4); Eos % (Auto) 1.9 % (0.0-4.0); Hematocrit 38.3 % (35.0-46.0); Hemoglobin 13.1 gm/dL (11.6-15.3); Lymph # (Auto) 2.1 th/mm3 (1.0-4.8); Mean Corpuscular HGB Conc 34.3 % (32.0-36.0); Mean Corpuscular Hemoglobin 33.5 pg (27.0-34.0); Mean Corpuscular Volume 97.8 fL (80.0-100.0); Mean Platelet Volume 7.8 fL (7.0-11.0); Mono # (Auto) 0.4 th/mm3 (0.0-0.9); Mono % (Auto) 7.8 % (0.0-8.0); Neut # (Auto) 2.6 th/mm3 (1.8-7.7); Neut % (Auto) 49.9 % (16.0-70.0); Platelet Count 222 th/mm3 (150-450); Red Blood Count 3.92 mil/mm3 (4.00-5.30); Red Cell Distribution Width 12.9 % (11.6-17.2); White Blood Count 5.3 th/mm3 (4.0-11.0)
[2018-05-04 09:56] LABS: Alanine Aminotransferase 47 U/L (10-53); Anion Gap 8 meq/L (5-15); Aspartate Aminotransferase 27 U/L (15-37); Blood Urea Nitrogen 9 mg/dL (7-18); Calcium 8.7 mg/dL (8.5-10.1); Carbon Dioxide 26.6 meq/L (21.0-32.0); Chloride 107 meq/L (98-107); Glomerular Filtration Rate 85 mL/min (>89); Glucose,Random 74 mg/dL (74-106); Potassium 4.3 meq/L (3.5-5.1); Sodium 142 meq/L (136-145)
[2018-05-04 09:59] LABS: Alkaline Phosphatase 100 U/L (45-117); Total Protein 6.9 g/dL (6.4-8.2)
--- NOTE | 2018-05-04 13:06 | P.PNPSY ---
Subjective Remarks: Patient was seen and case discussed with nursing. She is less oppositional today and agreed to routine lab work this morning. CBC/CMP was within limits. She continues to have poor insight and is perseverative on discharge. Compliant with medications and behaving well on the unit Mental Status Examination Appearance: Disheveled (Somewhat improved) Consciousness: Vigilant Orientation: Person, Place (At least) Motor Activity: Normal gait Speech: Pressured, Hesitant (Improving), Slow (Improved) Language: Adequate Fund of Knowledge: Adequate Attention and Concentration: Inadequate Memory: Unremarkable (Psychosis interferes) Mood: Anxious, Irritable Affect: Other (Decreased range and intensity) Thought Process & Associations: Circumstantial, Disorganized Thought Content: Bizarre thinking, Hallucinations Hallucination Type: Auditory (Appears internally stimulated) Delusion Type: Bizarre Suicidal Ideation: No Suicidal Plan: No Suicidal Intention: No Homicidal Ideation: No Homicidal Plan: No Homicidal Intention: No Insight: Poor Judgment: Poor Assessment and Plan - Assessment (1) Schizophrenia Code(s): F20.9 - Schizophrenia, unspecified Status: Acute - Plan Plan: Lab work tomorrow morning Justification for Continued Inpatient Stay: Patient would decompensate in a less restrictive setting Request Healthcare Surrogate/Guardian Advocate?: Yes (1) Schizophrenia Qualifiers: Schizophrenia type: paranoid schizophrenia Qualified Code(s): F20.0 - Paranoid schizophrenia
[2018-05-05] MEDS: Ibuprofen 600 MG Tablet PO SCH ×3 (06:04→21:18)
[2018-05-05] MEDS: Senna/Docusate Sodium 8.6/50 MG Tablet PO SCH ×2 (08:34→21:18)
--- NOTE | 2018-05-05 12:23 | P.PNPSY ---
Subjective Remarks: Patient seen and examined with counselor in coverage for Dr. To. Chart reviewed. Case discussed with nursing staff. On my examination today, the patient is discharged focused. She says that she can stay with her mother and father and says that she has been here "too long." She denies any SI or HI. Denies AVH. Denies side effects from medications. No physical complaints. In particular, no complaints of symptomatic hypotension. Vital Signs Temp Pulse Resp BP Pulse Ox 05/05/18 06:50 67 16 77/46 L 05/04/18 17:02 98.0 F 95 H 18 131/77 100 Intake and Output 05/04/18 05/05/18 05/05/18 22:59 06:59 14:59 Other: Weight 59 kg Labs reviewed. Review of Systems All other systems reviewed negative except as stated in HPI Mental Status Examination Appearance: Other (Fair grooming) Consciousness: Alert Orientation: Person, Place (At least) Motor Activity: Normal gait, Other (No motor abnormalities noted) Speech: Unremarkable Language: Adequate Fund of Knowledge: Adequate Attention and Concentration: Other (Fair) Memory: Unremarkable (Psychosis interferes) Mood: Irritable, Other (Calm) Affect: Blunt Thought Process & Associations: Circumstantial Thought Content: Bizarre thinking Hallucination Type: None Delusion Type: None Suicidal Ideation: No Suicidal Plan: No Suicidal Intention: No Homicidal Ideation: No Homicidal Plan: No Homicidal Intention: No Insight: Poor Judgment: Poor Assessment and Plan - Assessment (1) Schizophrenia Code(s): F20.9 - Schizophrenia, unspecified Status: Acute - Plan Plan: Continue current psychotropic medications as ordered. Continue to monitor on the inpatient unit. Continue other medications and care as ordered. Justification for Continued Inpatient Stay: Risk for decompensation in less restrictive environment. Discharge Planning: Per Dr. To Request Healthcare Surrogate/Guardian Advocate?: Yes (1) Schizophrenia Qualifiers: Schizophrenia type: paranoid schizophrenia Qualified Code(s): F20.0 - Paranoid schizophrenia
[2018-05-06] MEDS: Ibuprofen 600 MG Tablet PO SCH ×2 (05:45→16:25)
[2018-05-06] MEDS: Senna/Docusate Sodium 8.6/50 MG Tablet PO SCH ×2 (08:22→20:20)
--- NOTE | 2018-05-06 08:55 | P.PNPSY ---
Subjective Remarks: Patient seen in day room with floor staff, chart reviewed, patient compliant medications. Patient continues superficial denying suicidality homicidality denying voices of appearing to be responding to internal stimuli. She says she is ready to go home with her family. Patient continues to have no insight into her disease. For now continue treatment. Continue to [facility] Review of Systems All other systems reviewed negative except as stated in HPI Mental Status Examination Appearance: Other (Fair grooming) Consciousness: Alert Orientation: Person, Place (At least) Motor Activity: Normal gait, Other (No motor abnormalities noted) Speech: Unremarkable Language: Adequate Fund of Knowledge: Adequate Attention and Concentration: Other (Fair) Memory: Unremarkable (Psychosis interferes) Mood: Irritable, Other (Calm) Affect: Blunt Thought Process & Associations: Circumstantial Thought Content: Bizarre thinking Hallucination Type: None Delusion Type: None Suicidal Ideation: No Suicidal Plan: No Suicidal Intention: No Homicidal Ideation: No Homicidal Plan: No Homicidal Intention: No Insight: Poor Judgment: Poor Assessment and Plan - Assessment (1) Schizophrenia Code(s): F20.9 - Schizophrenia, unspecified Status: Acute - Plan Plan: Patient remained psychotic, no insight into her disease, continue to await word from [facility] referral Justification for Continued Inpatient Stay: At this time patient would decompensate if placed in a lower level of care Discharge Planning: Continue to await word from [facility] referral Request Healthcare Surrogate/Guardian Advocate?: Yes (1) Schizophrenia Qualifiers: Schizophrenia type: paranoid schizophrenia Qualified Code(s): F20.0 - Paranoid schizophrenia
[2018-05-07] MEDS: Senna/Docusate Sodium 8.6/50 MG Tablet PO SCH ×2 (08:32→20:19)
--- NOTE | 2018-05-07 10:47 | P.TTN ---
- Patient Problems Problems: 1. Discharge planning 2. Medication compliance 3. Knowledge deficit 4. Lack of coping skills - Progress Toward Goals Provider Present: Dr. Pilar To (Continues to meet criteria for state hospital , continue with trying to get her to [facility] act to await state hospitalization.) Psychiatric Counselors Present: Bright Chavarria Jr., [facility] (Patient is still delusional and meets criteria for state hospitalization.) Group Spec/RT/OT/VELA Present: MIRIAN Love (Patient attends select groups.) - Documentation Teaching Recipient: Patient
--- NOTE | 2018-05-07 14:25 | P.PNPSY ---
Subjective Remarks: Patient seen in her room with nurse Mel, patient continues disorganized somewhat diffusely confused. Was confused about the visit from staff member from [facility] related to possible transfer to that facility in the next day or 2 [address] the [facility] placement, compliant medications Review of Systems All other systems reviewed negative except as stated in HPI Mental Status Examination Appearance: Other (Fair grooming) Consciousness: Alert Orientation: Person, Place (At least) Motor Activity: Normal gait, Other (No motor abnormalities noted) Speech: Unremarkable Language: Adequate Fund of Knowledge: Adequate Attention and Concentration: Other (Fair) Memory: Unremarkable (Psychosis interferes) Mood: Irritable, Other (Calm) Affect: Blunt Thought Process & Associations: Circumstantial Thought Content: Bizarre thinking Hallucination Type: None Delusion Type: None Suicidal Ideation: No Suicidal Plan: No Suicidal Intention: No Homicidal Ideation: No Homicidal Plan: No Homicidal Intention: No Insight: Poor Judgment: Poor Assessment and Plan - Assessment (1) Schizophrenia Code(s): F20.9 - Schizophrenia, unspecified Status: Acute - Plan Plan: Patient continues psychotic delusional with disorganized Justification for Continued Inpatient Stay: At this time patient would decompensate if placed in a lower level of care Discharge Planning: Continue to await word from [facility] placement Request Healthcare Surrogate/Guardian Advocate?: Yes (1) Schizophrenia Qualifiers: Schizophrenia type: paranoid schizophrenia Qualified Code(s): F20.0 - Paranoid schizophrenia
[2018-05-07] MEDS: Ibuprofen 600 MG Tablet PO SCH ×2 (14:40→20:10)
[2018-05-08] MEDS: Ibuprofen 600 MG Tablet PO SCH ×2 (05:41→05:42)
[2018-05-08 06:16] VITALS: BP 96/54; PULSE 69; RESP 17; TEMP 98.2; O2SAT 98
[2018-05-08] MEDS: Senna/Docusate Sodium 8.6/50 MG Tablet PO SCH (08:36)
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
[2018-05-23] MEDS ORDERED: Paliperidone Inj 234 MG/1.5 ML Syringe IM SCH (17:00)
== END 2018-05-08 14:31 ==
LOC: NEDAMB 17:10 → NEDA 04-01 18:03 → H260 04-01 19:21 → H270 04-08 17:16
PROVIDERS: ADMIT Psychiatry & Neurology Psychiatry; ATTEND Psychiatry & Neurology Psychiatry